=== PATIENT | female | born 1960 | race Caucasian/White ===

== ENCOUNTER 2023-09-12 15:29 | Outpatient (CLI) | payer BC, SELFPAY ==
--- NOTE | 2023-09-12 15:39 | XR_ITS ---
FINAL REPORT CLINICAL HISTORY: Right foot pain FINDINGS: RIGHT FOOT 3 views of the right foot were obtained. There is no acute fracture or dislocation. Visualized joint spaces are normally aligned. Soft tissues are unremarkable. IMPRESSION: No acute bony abnormality. Reviewed, Interpreted and Dictated by Dawn Anand MD Transcribed by Torrie Singer Authenticated and [facility]
--- NOTE | 2023-09-12 15:39 | XR_ITS ---
FINAL REPORT CLINICAL HISTORY: Right foot/ankle pain FINDINGS: RIGHT ANKLE 3 views of the right ankle were obtained. There is no acute fracture or dislocation. The mortise is intact. Visualized joint spaces are normally aligned. Soft tissues are unremarkable. IMPRESSION: No acute bony abnormality. Reviewed, Interpreted and Dictated by Dawn Anand MD Transcribed by Torrie Singer Authenticated and [facility]
== END 2023-09-12 23:59 | disposition home or self-care (01) ==
LOC: RAD 15:32
PROVIDERS: PCP Physician Assistant Medical; Visit Provider Podiatrist
DX: M25.571 Pain in right ankle and joints of right foot (principal); M79.671 Pain in right foot; M76.821 Posterior tibial tendinitis, right leg; M76.822 Posterior tibial tendinitis, left leg; M25.371 Other instability, right ankle; M25.372 Other instability, left ankle
CPT/HCPCS: 73610; 73630

== ENCOUNTER 2023-11-09 18:21 | Outpatient (CLI) | payer BC, SELFPAY ==
--- NOTE | 2023-11-09 18:41 | XR_ITS ---
PROCEDURE INFORMATION: Exam: XR Right Ankle Exam date and time: 11/09/2023 6:44 PM Age: 62 years old Clinical indication: Pain; Ankle; Right; Additional info: Ankle pain TECHNIQUE: Imaging protocol: Radiologic exam of the right ankle. Views: 3 or more views. COMPARISON: CR XR ANKLE WT BEARING RT MIN 3V 09/12/2023 3:40 PM FINDINGS: Bones/joints: No fracture or dislocation. No focal osseous lesions. No significant arthropathy. Soft tissues: Unremarkable. IMPRESSION: Normal exam.
--- NOTE | 2023-11-09 18:41 | XR_ITS ---
PROCEDURE INFORMATION: Exam: XR Right Foot Complete; Alignment Exam date and time: 11/09/2023 6:44 PM Age: 62 years old Clinical indication: Pain; Foot; Right; Additional info: Foot pain TECHNIQUE: Imaging protocol: Radiologic exam of the right foot. Views: 3 or more views. COMPARISON: CR XR FOOT WT BEARING RT 3V 09/12/2023 3:40 PM FINDINGS: Bones/joints: No fracture or dislocation. No focal osseous lesions. No significant arthropathy. Soft tissues: Unremarkable. IMPRESSION: Normal exam.
--- NOTE | 2023-11-09 18:41 | XR_ITS ---
PROCEDURE INFORMATION: Exam: XR Left Foot Complete; Alignment Exam date and time: 11/09/2023 6:44 PM Age: 62 years old Clinical indication: Pain; Foot; Left; Additional info: Foot pain TECHNIQUE: Imaging protocol: Radiologic exam of the left foot. Views: 3 or more views. COMPARISON: CR FOOT LT 3V 10/28/2022 3:56 PM FINDINGS: Bones/joints: No fracture or dislocation. No focal osseous lesions. No significant arthropathy. Soft tissues: Unremarkable. IMPRESSION: Normal exam.
--- NOTE | 2023-11-09 18:41 | XR_ITS ---
PROCEDURE INFORMATION: Exam: XR Left Ankle Exam date and time: 11/09/2023 6:44 PM Age: 62 years old Clinical indication: Pain; Ankle; Left; Additional info: Ankle pain TECHNIQUE: Imaging protocol: Radiologic exam of the left ankle. Views: 3 or more views. COMPARISON: MRI - LEFT ANKLE W/O CONTRAST 10/21/2022 2:02 PM FINDINGS: Bones/joints: No fracture or dislocation. No focal osseous lesions. No significant arthropathy. Soft tissues: Unremarkable. IMPRESSION: Normal exam.
== END 2023-11-09 23:59 | disposition home or self-care (01) ==
LOC: RAD 18:23
PROVIDERS: Visit Provider Podiatrist
DX: M79.671 Pain in right foot (principal); M79.672 Pain in left foot; M25.571 Pain in right ankle and joints of right foot; M25.572 Pain in left ankle and joints of left foot
CPT/HCPCS: 73610; 73630

== ENCOUNTER 2024-04-04 09:47 | Day surgery (SDC) | payer BC, SELFPAY ==
[2024-04-03 11:21] VITALS: BMI 25.0
[2024-04-04 10:11] VITALS: BP 147/84; PULSE 98; RESP 16; TEMP 36.7; O2SAT 98
[2024-04-04] MEDS: LACTATED RINGERS 1000ML 1,000 ML 50 ML IV (10:15)
--- NOTE | 2024-04-04 10:21 | EXP.ANES.CKL ---
[facility] Disclaimer: The information contained in this section may have been updated after the patient was seen, as this information can be updated by other users. Medical History Hypotension Endometriosis Surgical History Hx of breast reduction, elective H/O left wrist surgery distal fx H/O right knee surgery Hx of appendectomy Family History Sister Cancer breast Mother Cancer uterine Hypertension Father Hypotension Social History Smoking Status: Never smoker alcohol intake: current alcohol intake frequency: holidays/special occasions only substance use type: denies use current occupational status: retired Travel in the last 8 weeks: None [facility] Anesthesia Checklist Patient Identification Patient Identification: Arm Band and Verbal (Name & ) Structural Data Admitted From: Home Planned Operative Procedure/s: EGD Consent for Planned Operative Procedure(s) Verified: Yes Verified Documents: Surgical Consent NPO Status Verified Time NPO: 00:00 Additional verifications Patient : No Anesthesia Reactions: No Hx Blood Transfusions: No Blood Transfusion Reaction: No Cephalosporin Allergy: No Previous Colonoscopy: No Cardiovascular Assessment Heart Sounds: S1 & S2 Pulse Strength: Baseline Pulse Rhythm: Regular Peripheral Edema: No Airway Assessment Mallampati Score:: Class II C-Spine Mobility Assessed: Yes TMJ Mobility Assessed: Yes Dentition: Good Dentition Neurological Assessment Level of Consciousness: Awake, Alert and Appropriate Hx Seizures: No Numbness or tingling in extremities: No Genitourinary Assessment Voided container washer to O.R.: Yes Anesthesia Plan Anesthesia Risk discussed: Yes Anesthesia Plan: Verified ASA Class: II Anesthesia Type: MAC
--- NOTE | 2024-04-04 10:24 | P.HP_ITS ---
History of Present Illness *Admission Date: 04/04/24 *Reason for visit:: Heartburn/reflux and belching with noncardiac chest pain *History of present illness: Mrs. Pérez is a 63-year-old female who is here for heartburn, reflux, belching and noncardiac chest pain. The examination is deemed medically necessary for diagnostic EGD. The patient has been seen, interviewed and examined prior to the procedure by both myself and the anesthesia provider. [facility] Disclaimer: The information contained in this section may have been updated after the patient was seen, as this information can be updated by other users. Medical History Hypotension Endometriosis Surgical History Hx of breast reduction, elective H/O left wrist surgery distal fx H/O right knee surgery Hx of appendectomy Family History Sister Cancer breast Mother Cancer uterine Hypertension Father Hypotension Social History (Updated 04/04/24 @ 10:22 by Kirk Dey CRNA) Smoking Status: Never smoker alcohol intake: current alcohol intake frequency: holidays/special occasions only substance use type: denies use current occupational status: retired Travel in the last 8 weeks: None Have you lived/traveled outside [place] in past 30 days?: No Contact w/someone who lives/traveled outside US past 30 days?: No Exposure to someone with infectious disease in past 14 days?: No Do you have a fever (greater than 100.4 F or 38 C)?: No Have you tested positive for COVID-19: No Exposed to someone with COVID-19 in past 14 days?: No Do you have a sore throat?: No Do you have a cough?: No Do you have any weakness?: No Are you experiencing any nausea/vomitting?: No Do you have any diarrhea?: No Are you experiencing any unusual bleeding?: No Do you have any muscle aches/pain?: No Do you have any abdominal pain?: No Are you experiencing loss of taste or smell?: No Review of Systems Review of Systems Review of systems (narrative): Negative *Cardiovascular Comments: Negative *Gastrointestinal Comments: Negative *Genitourinary Comments: Negative *Musculoskeletal Comments: Negative *Neurologic Comments: Negative Meds Home Medications and Allergies Home Medications ?Medication ?Instructions ?Recorded ?Confirmed ?Type diosmin complex no.1 630 mg tablet 1 tab PO DAILY 03/15/23 04/04/24 History (Vasculera) ibuprofen 600 mg tablet 600 mg PO Q8H PRN pIN 03/15/23 04/04/24 History methenamin 81.6 mg-hyoscyam 0.12 1 tab PO QID PRN Bladder Spasms 03/15/23 04/04/24 History mg-methblue 10.8 pq-wh-xubovie tablet (Uribel Tabs) amitriptyline 10 mg tablet 10 mg PO DAILY 03/01/24 04/04/24 History calcium carbonate 1,200 mg PO DAILY 03/01/24 04/04/24 History hydroxyzine HCl 25 mg tablet 25 mg PO HS PRN Sleep 03/01/24 04/04/24 History multivitamin (Multiple Vitamins 1 tab PO DAILY 03/01/24 04/04/24 History tablet) famotidine 20 mg tablet (Pepcid) 20 mg PO DAILY 03/02/24 04/04/24 History New Prescriptions to Start Prescriptions: Allergies Allergy/AdvReac Type Severity Reaction Status Date / Time alcohol (From Mastisol Allergy Severe Blister Verified 04/04/24 10:10 Adhesive) gum mastic (From Mastisol Allergy Severe Blister Verified 04/04/24 10:10 Adhesive) latex Allergy Severe Rash Verified 04/04/24 10:10 methyl salicylate (From Allergy Severe Blister Verified 04/04/24 10:10 Mastisol Adhesive) storax (From Mastisol Allergy Severe Blister Verified 04/04/24 10:10 Adhesive) Exam Data for Last 24 hours Vital signs and Labs for Last 24 Hours: Temp Pulse Resp BP Pulse Ox O2 Del Method 98.1 F 98 H 16 147/84 H 98 Room Air 04/04/24 10:11 04/04/24 10:11 04/04/24 10:11 04/04/24 10:11 04/04/24 10:11 04/04/24 10:11 I & O for Last 24 hours: Intake & Output 04/01/24 04/02/24 04/03/24 04/04/24 23:59 23:59 23:59 23:59 Weight 146 lb *Routine HEENT Exam Head: Present normocephalic Eye: Present EOMI and PERRL ENT: Present mucous membranes moist *Routine Neck Exam Neck: Present supple *Routine Respiratory Exam Respiratory: Present CTA bilaterally *Routine Cardiovascular Exam Cardiovascular: Present RRR *Routine Abdominal Exam Abdominal: Present soft and normoactive bowel sounds; Absent tenderness *Routine Rectal Exam Rectal:: deferred *Routine Genitalia Exam Genitalia:: deferred *Routine Extremities Exam Extremities: Absent cyanosis, clubbing or edema *Routine Skin Exam Skin: Present warm; Absent rash *Routine Neurological Exam Neurological: Present alert and oriented X3 Assessment and Plan *Assessment and plan (1) Heartburn: Status: Acute Category: Medical Code(s): R12 - Heartburn (2) Belching: Status: Acute Category: Medical Code(s): R14.2 - Eructation (3) Non-cardiac chest pain: Status: Acute Category: Medical Code(s): R07.89 - Other chest pain Plan A/P: 1. Heartburn, reflux, belching and noncardiac chest pain is the preprocedural diagnosis. The patient will be anesthetized/sedated using MAC sedation. The patient has been seen and examined. Cardiac and lung assessment prior to the examination is stable. Proceed with planned diagnostic EGD.
[2024-04-04 10:25] VITALS: O2SAT 100
--- NOTE | 2024-04-04 10:25 | P.PCN_ITS ---
[facility] Procedure Note Date: 04/04/24 Time: 10:44 Procedure Note:: Upper Endoscopy Procedure Report: Esophagogastroduodenoscopy with cold biopsies Endoscopost: Ulises Cole II, MD Referring Physician: Misty Garland PA-C, [address] [place] [id number] Date of Procedure: April 04, 2024 Equipment: Olympus GIF 190 standard upper endoscope Sedation: MAC sedation Indications: Mrs. Barger is a 63-year-old female with noncardiac chest pain and belching. This began 6 to 12 months ago. She has developed some heartburn with increased belching. She also has some constipation and may skip days without a bowel movement. She has increased her water intake. She did go to the [facility]cy department at [facility] on 02/12/2024. Her cardiac evaluation was unremarkable. She did receive a GI cocktail which helped her symptoms. They felt this was GERD symptoms and she was sent home with famotidine. Avoiding carbonation has helped. However, she has not had resolution of her symptoms. She did have a colonoscopy with Dr. Magdy Cardenas in 2021. She did see Dr. Jojo Gardner MD for hemorrhoids about a year ago and had been on Vasculera. Procedure: Prior to the procedure, a history and physical exam was performed, and patient's medications and allergies were reviewed. The risks, benefits and alternatives of the sedation and procedure were discussed with the patient. All questions were answered and informed consent was obtained. The patient was brought to the procedure room. Patient identification and proposed procedure were verified by the physician and the nurse. The patient was placed in a left lateral decubitus position and the scope was passed under direct vision. Throughout the procedure, the patient's blood pressure, pulse, and oxygen saturations were monitored continuously. The upper GI endoscopy was accomplished without difficulty. The patient tolerated the procedure well. Findings: The scope was passed directly into the upper esophagus and advanced to the third portion of the duodenum. There was prominent mucosal lymphatics/benign lymphoid hyperplasia of the duodenum with whitish appearance. Otherwise, the post bulbar duodenum and duodenal bulb were normal with normal mucosa and conniventes. The scope was withdrawn through a normal duodenal bulb and pylorus into the stomach. There was very mild linear reactive gastropathy of the antrum. The body and fundus of the stomach were normal. Upon retroflexion there was a small 1 to 2 cm hiatal hernia. Biopsies were taken from the antrum. The scope was then withdrawn into the esophagus. There was a distal esophageal fibrous ring/Schatzki's ring that was originally 14 to 15 mm in diameter. This was dilated to 20 mm with a TTS hydrostatic balloon. There was no evidence of reflux esophagitis, corrugation or furrowing. There were tertiary contractions and evidence of moderate esophageal dysmotility. The remainder of the esophageal mucosa was normal. Impression: 1. Schatzki's ring status post dilation to 20 mm 2. Nonerosive GERD with moderate esophageal dysmotility and small 1 to 2 cm hiatal hernia 3. Very mild linear reactive gastropathy of prepyloric antrum Plan: I will follow-up the biopsies. I will recommend omeprazole x 3 months. I do feel that most of her belching, reflux and esophageal spasm are related to and driven by lower intestinal gas pressure gradients/high gas pressure buildup resulting in backflow of bile and peptic fluid from the duodenum into the stomach (duodenal reflux). This gas production (carbon dioxide, hydrogen, methane, etc.) from the lower intestinal tract is the byproduct of colonic bacterial fermentation. This colonic fermentation occurs when there is more carbohydrate (dietary starches, sugars and high residue plant fiber) substrate that does not get digested (in the middle or small intestine) or occurs when there is colonic fecal buildup and colonic bacterial overgrowth. This indeed leads to bloating and the gas pressure buildup with gas pressure gradients that do drive backflow. I would encourage a fiber bowel regimen on a long-term daily maintenance basis.
[2024-04-04 10:45] VITALS: BP 149/78; PULSE 94; RESP 18; TEMP 36.2; O2SAT 95
[2024-04-04 10:55] VITALS: BP 130/79; PULSE 90; RESP 18; O2SAT 97
[2024-04-04 11:05] VITALS: BP 132/90; PULSE 84; RESP 18; O2SAT 98
[2024-04-04 11:19] VITALS: BP 135/85; PULSE 86; RESP 18; O2SAT 98
== END 2024-04-04 11:19 | disposition home or self-care (01) ==
PROVIDERS: PCP Physician Assistant Medical; Visit Provider Internal Medicine Gastroenterology
PROC: 0DJ08ZZ Inspection of Upper Intestinal Tract, Via Natural or Artificial Opening Endoscopic (ICD-10-PCS; CPT 43239; principal; 2024-04-04 11:30)
DX: R12 Heartburn (principal); R14.2 Eructation; R07.89 Other chest pain; K21.9 Gastro-esophageal reflux disease without esophagitis; K31.9 Disease of stomach and duodenum, unspecified; K22.4 Dyskinesia of esophagus; K44.9 Diaphragmatic hernia without obstruction or gangrene; K22.2 Esophageal obstruction
CPT/HCPCS: 43239; 43249; C1726; J7120